=== PATIENT | male | born 1945 | race Caucasian/White ===

== ENCOUNTER 2019-08-01 10:19 | Observation (INO) | payer MEDICARE, OTHER ==
[2019-08-01] MEDS ORDERED: LEVETIRACETAM 500 MG/NACL-ISO 500 MG/100 ML RTUPB IV ONE (10:36)
[2019-08-01] MEDS ORDERED: LEVETIRACETAM 1000 MG/NACL-ISO 1,000 MG/100 ML RTUPB IV ONE (10:36)
[2019-08-01 10:57] LABS: ABSOLUTE BASOPHILS # (AUTO) 0.1 10^3/uL (0.0-0.2); ABSOLUTE EOSINOPHILS # (AUTO) 0.1 10^3/uL (0.0-0.6); ABSOLUTE LYMPHOCYTES (AUTO) 0.6 10^3/uL (0.5-4.7); ABSOLUTE MONOCYTES (AUTO) 0.3 10^3/uL (0.1-1.4); ABSOLUTE NEUT (AUTO) 4.8 10^3/uL (1.7-8.2); EOSINOPHILS % (AUTO) 1.2 % (0-6); HEMATOCRIT 43.9 % (37.9-51.0); HEMOGLOBIN 14.7 g/dL (13.5-17.0); LYMPHOCYTES % (AUTO) 9.8 % (13-45); MEAN CORPUSCULAR HEMOGLOBIN 31.7 pg (27.0-33.4); MEAN CORPUSCULAR HGB CONC 33.4 g/dL (32.0-36.0); MEAN CORPUSCULAR VOLUME 95 fl (80-97); MONOCYTES % (AUTO) 5.9 % (3-13); PLATELET COUNT 183 10^3/uL (150-450); RED BLOOD COUNT 4.63 10^6/uL (4.35-5.55); RED CELL DISTRIBUTION WIDTH 14.1 % (11.5-14.0); SEGMENTED NEUTROPHILS % (AUTO) 82.1 % (42-78); TOTAL CELLS COUNTED % (AUTO) 100 %; WHITE BLOOD COUNT 5.9 10^3/uL (4.0-10.5)
[2019-08-01 11:00] LABS: INTERNATIONAL RATION (INR) 0.98; VENOUS BLOOD BASE EXCESS -5.4 mmol/L; VENOUS BLOOD HCO3 21.4 mmol/L (20-32); VENOUS BLOOD PCO2 46.6 mmHg (35-63); VENOUS BLOOD PH 7.28 (7.30-7.42)
[2019-08-01] MEDS ORDERED: LEVETIRACETAM 1500 MG/NACL-ISO 1,500 MG/100 ML RTUPB IV SCH (11:00)
--- NOTE | 2019-08-01 11:12 | RADIOLOGY REPORT (SQ) ---
EXAM DESCRIPTION: CHEST SINGLE VIEW COMPLETED DATE/TIME: 08/01/2019 11:03 am REASON FOR STUDY: ams COMPARISON: 07/21/2010 EXAM PARAMETERS: NUMBER OF VIEWS: One view. TECHNIQUE: Single frontal radiographic view of the chest acquired. RADIATION DOSE: NA LIMITATIONS: None. FINDINGS: LUNGS AND PLEURA: No opacities, masses or pneumothorax. No pleural effusion. MEDIASTINUM AND HILAR STRUCTURES: There is concavity along the right hilum. Most likely secondary to tortuous thoracic aorta. HEART AND VASCULAR STRUCTURES: Heart normal in size. Normal vasculature. BONES: No acute findings. HARDWARE: None in the chest. OTHER: No other significant finding. IMPRESSION: Suspect tortuous ascending thoracic aorta. No other significant findings in the chest. TECHNICAL DOCUMENTATION: JOB ID: [id number] 2010 [employer]- All Rights Reserved Reading location - IP/workstation name: [email or web address]
--- NOTE | 2019-08-01 11:13 | RADIOLOGY REPORT (SQ) ---
EXAM DESCRIPTION: CT HEAD WITHOUT COMPLETED DATE/TIME: 08/01/2019 11:01 am REASON FOR STUDY: ams/sz COMPARISON: None. TECHNIQUE: Axial images acquired through the brain without intravenous contrast. Images reviewed wi th bone, brain and subdural windows. Additional sagittal and coronal reconstructions were generated. Images stored on PACS. All CT scanners at this facility use dose modulation, iterative reconstruction, and/or weight based d osing when appropriate to reduce radiation dose to as low as reasonably achievable (ALARA). [facility]: Dose Right [facility]: CareDose [facility]: Dose Right [facility]: Teradose 4D [facility]: Smart The Other [employer]ys RADIATION DOSE: CT Rad equipment meets quality standard of care and radiation dose reduction techniq ues were employed. CTDIvol: 53.2 mGy. DLP: 1070 mGy-cm. mGy. LIMITATIONS: None. FINDINGS: VENTRICLES: Prominent. CEREBRUM: No masses. No hemorrhage. No midline shift. Areas of low density in the white matter mos t likely due to chronic micro-vascular ischemic change. No evidence for acute infarction. CEREBELLUM: No masses. No hemorrhage. No alteration of density. No evidence for acute infarction. EXTRAAXIAL SPACES: Mild age-related involutional change. No fluid collections. No masses. ORBITS AND GLOBE: No intra- or extraconal masses. Normal contour of globe without masses. CALVARIUM: No fracture. PARANASAL SINUSES: Surgical changes in the right maxillary sinus. No fluid or mucosal thickening. SOFT TISSUES: No mass or hematoma. OTHER: No other significant finding. IMPRESSION: MILD CHRONIC CHANGES OF ATROPHY AND MICROVASCULAR ISCHEMIA. NO ACUTE PROCESS. EVIDENCE OF ACUTE STROKE: NO. TECHNICAL DOCUMENTATION: JOB ID: [id number] Quality ID # [id number]: Final reports with documentation of one or more dose reduction techniques (e.g., Au tomated exposure control, adjustment of the mA and/or kV according to patient size, use of iterative reconstruction technique) 2010 [employer]- All Rights Reserved Reading location - IP/workstation name: [email or web address]
[2019-08-01 11:21] LABS: ALBUMIN 3.7 g/dL (3.5-5.0); ALKALINE PHOSPHATASE 52 U/L (38-126); ANION GAP 13 (5-19); ASPARTATE AMINO TRANSFERASE 26 U/L (17-59); BILIRUBIN,TOTAL 0.4 mg/dL (0.2-1.3); BLOOD UREA NITROGEN 19 mg/dL (7-20); CALCIUM 8.5 mg/dL (8.4-10.2); CARBON DIOXIDE 20 mmol/L (22-30); CHLORIDE 107 mmol/L (98-107); GLUCOSE 146 mg/dL (75-110); POTASSIUM 4.1 mmol/L (3.6-5.0); TOTAL PROTEIN 6.4 g/dL (6.3-8.2)
--- NOTE | 2019-08-01 13:16 | ER Document Report ---
ED General - General Chief Complaint: Probable Seizure Stated Complaint: POSSIBLE SEIZURE Time Seen by Provider: 08/01/19 10:27 Primary Care Provider: DESTINI WINTER PA-C [Primary Care Provider] - Follow up as needed Mode of Arrival: Medic Information source: Patient, Emergency Med Personnel TRAVEL OUTSIDE OF THE [place] IN LAST 30 DAYS: No - HPI Notes: Patient is brought in by paramedics after a seizure. History was obtained from paramedics patient and from who is now arrived. states that several weeks ago patient had an episode where he was altered for most of the day. 2 days after this he went to see his primary care physician. She states multiple laboratories and an MRI were done and they were all normal. Today she states when the patient woke up he was once again confused. Patient then went to [facility]. Per bystanders at [facility] she had 2 grand mal seizures there. Paramedics states that they found him postictal. Patient states he has not recently had any chest pain or shortness of breath. No fevers. No rashes. No trauma. No problems with bowel movements or urination. No cough cold or congestion. Patient's confusion has apparently been intermittent. Nothing appears make it better or worse. There is obviously no radiation of the symptoms. They have been moderate in intensity. - Related Data Allergies/Adverse Reactions: No Known Allergies Allergy (Unverified 08/01/19 10:37) Past Medical History - General Information source: Patient - Social History Smoking Status: Never Smoker Frequency of alcohol use: None Drug Abuse: None Family History: Reviewed & Not Pertinent Patient has suicidal ideation: No Patient has homicidal ideation: No Review of Systems - Review of Systems Constitutional: denies: Chills, Fever Cardiovascular: denies: Chest pain, Palpitations Respiratory: denies: Cough, Short of breath -: Yes All other systems reviewed and negative Physical Exam - Vital signs Vitals: Resp Pulse Ox 13 98 08/01/19 10:28 08/01/19 10:28 Interpretation: Normal - General General appearance: Alert, Lethargic - Patient arrives lethargic but is currently at 1 PM alert and oriented x3. - HEENT Head: Normocephalic, Atraumatic Eyes: Normal Pupils: PERRL - Respiratory Respiratory status: No respiratory distress Chest status: Nontender Breath sounds: Normal Chest palpation: Normal - Cardiovascular Rhythm: Regular Heart sounds: Normal auscultation Murmur: No - Abdominal Inspection: Normal Distension: No distension Bowel sounds: Normal Tenderness: Nontender Organomegaly: No organomegaly - Back Back: Normal, Nontender - Extremities General upper extremity: Normal inspection, Nontender, Normal color, Normal ROM, Normal temperature General lower extremity: Normal inspection, Nontender, Normal color, Normal ROM, Normal temperature, Normal weight bearing. No: Brooke's sign - Neurological Neuro grossly intact: Yes Cognition: Normal Orientation: AAOx4 [place] Coma Scale Eye Opening: Spontaneous David Coma Scale Verbal: Oriented David Coma Scale Motor: Obeys Commands [place] Coma Scale Total: 15 Speech: Normal Motor strength normal: LUE, RUE, LLE, RLE Sensory: Normal Notes: The above neuro exam is the neuro exam done at 1 PM. On arrival patient was lethargic and would not cooperate with neurological exam since he was postictal. - Psychological Associated symptoms: Normal affect, Normal mood - Skin Skin Temperature: Warm Skin Moisture: Dry Skin Color: Normal Course - Re-evaluation Re-evalutation: 08/01/19 13:16 Patient presents after 2 apparent grand mal seizures at [facility]. He has had some recent intermittent confusion as well. A recent MRI per family was negative. H ead CT here is negative. Exam and work-up so far here is also unremarkable. Patient will require further inpatient work-up and evaluation. Patient has been accepted by the hospitalist for admission. - Vital Signs Vital signs: Temp Pulse Resp BP Pulse Ox 97.4 F 16 152/85 H 98 08/01/19 11:04 08/01/19 12:01 08/01/19 12:01 08/01/19 12:01 - Laboratory Result Diagrams: 08/01/19 10:30 08/01/19 10:30 Laboratory results interpreted by me: 08/01/19 08/01/19 08/01/19 10:30 10:30 10:30 RDW 14.1 H Lymph % (Auto) 9.8 L Seg Neutrophils % 82.1 H VBG pH 7.28 L Carbon Dioxide 20 L Glucose 146 H POC Glucose 08/01/19 10:43 RDW Lymph % (Auto) Seg Neutrophils % VBG pH Carbon Dioxide Glucose POC Glucose 130 H - Diagnostic Test Radiology reviewed: Image reviewed, Reports reviewed - EKG Interpretation by Me EKG shows normal: Sinus rhythm Rate: Tachycardia - 102 Rhythm: NSR [place]/QRS: LAHB/LAFB Discharge - Discharge Clinical Impression: Seizure Condition: Stable Disposition: ADMITTED INPATIENT Admitting Provider: Brooklynn (Hospitalist) Unit Admitted: Medical Floor Referrals: DESTINI WINTER PA-C [Primary Care Provider] - Follow up as needed
[2019-08-01] MEDS ORDERED: NORMAL SALINE 1000 ML 1,000 ML IV ONE (13:22)
[2019-08-01 13:32] LABS: APPEARANCE,URINE CLEAR; BILIRUBIN,URINE NEGATIVE (NEGATIVE); COLOR,URINE YELLOW; GLUCOSE, URINE NEGATIVE (NEGATIVE); KETONES,URINE TRACE mg/dL (NEGATIVE); PROTEIN,URINE 100 mg/dL (NEGATIVE); URINE SPECIFIC GRAVITY 1.018; UROBILINOGEN,URINE NEGATIVE mg/dL (<2.0)
--- NOTE | 2019-08-01 14:20 | PDOC H&P ---
History of Present Illness Admission Date/PCP: 08/01/19 13:37 DESTINI WINTER PA-C Patient complains of: seizure History of Present Illness: ZARINA ESPINOZA is a 74 year old male with no significant past medical history aside from hyperlipidemia and hypertension who was brought in due to seizures. Patient reportedly was attending [employer] this morning when he had 2 tonic-clonic seizures. Patient is now awake but could not describe the seizure to me. Friend at bedside unfortunately also did not witness the seizure this morning. Patient reportedly had a postictal state and was noted to be confused after the episode. He also reportedly had a fecal incontinence. No urinary incontinence. Patient says that he had his first episode last month and that his PCP had done a few work-up including a CT of the head which was unremarkable. He says he was not started on any seizure medication. Denies prior history of seizures. On encounter, he is AAO x3 and saturating well on room air. Social History Smoking Status: Never Smoker Family History Family History: Reviewed & Not Pertinent Parental Family History Reviewed: Yes - no premature CAD Children Family History Reviewed: No Sibling(s) Family History Reviewed.: No Medication/Allergy Allergies/Adverse Reactions: No Known Allergies Allergy (Unverified 08/01/19 10:37) Review of Systems All systems: reviewed and no additional remarkable complaints except as stated - As mentioned in HPI Physical Exam Vital Signs: Temp Pulse Resp BP Pulse Ox 97.4 F 19 152/85 H 99 08/01/19 11:04 08/01/19 13:00 08/01/19 12:01 08/01/19 13:00 Intake & Output 07/31/19 08/01/19 08/02/19 06:59 06:59 06:59 Intake Total 100 Balance 100 Weight 197 lb 5.019 oz General appearance: PRESENT: no acute distress, well-developed, well-nourished Head exam: PRESENT: atraumatic, normocephalic Eye exam: PRESENT: conjunctiva pink, EOMI, PERRLA. ABSENT: scleral icterus Ear exam: PRESENT: normal external ear exam Mouth exam: PRESENT: moist, tongue midline Neck exam: ABSENT: carotid bruit, JVD, lymphadenopathy, thyromegaly Respiratory exam: PRESENT: clear to auscultation mya. ABSENT: rales, rhonchi, wheezes Cardiovascular exam: PRESENT: RRR. ABSENT: diastolic murmur, rubs, systolic murmur Pulses: PRESENT: normal dorsalis pedis pul GI/Abdominal exam: PRESENT: normal bowel sounds, soft. ABSENT: distended, guarding, mass, organolmegaly, rebound, tenderness Rectal exam: PRESENT: deferred Extremities exam: PRESENT: full ROM. ABSENT: calf tenderness, clubbing, pedal edema Neurological exam: PRESENT: alert, awake, oriented to person, oriented to place, oriented to time, oriented to situation, CN II-XII grossly intact. ABSENT: motor sensory deficit Results Laboratory Results: 08/01/19 10:30 08/01/19 10:30 08/01/19 08/01/19 08/01/19 10:30 10:30 10:30 WBC 5.9 RBC 4.63 Hgb 14.7 Hct 43.9 MCV 95 MCH 31.7 MCHC 33.4 RDW 14.1 H Plt Count 183 Seg Neutrophils % 82.1 H VBG pH 7.28 L VBG pCO2 46.6 VBG HCO3 21.4 VBG Base Excess -5.4 Sodium 139.6 Potassium 4.1 Chloride 107 Carbon Dioxide 20 L Anion Gap 13 BUN 19 Creatinine 0.87 Est GFR ( Amer) > 60 Glucose 146 H Lactic Acid Calcium 8.5 Total Bilirubin 0.4 AST 26 Alkaline Phosphatase 52 Total Protein 6.4 Albumin 3.7 Urine Color Urine Appearance Urine pH Ur Specific [place] Urine Protein Urine Glucose (UA) Urine Ketones Urine Blood Urine RBC (Auto) 08/01/19 08/01/19 08/01/19 10:30 12:00 12:40 WBC RBC Hgb Hct MCV MCH MCHC RDW Plt Count Seg Neutrophils % VBG pH VBG pCO2 VBG HCO3 VBG Base Excess Sodium Potassium Chloride Carbon Dioxide Anion Gap BUN Creatinine Est GFR ( Amer) Glucose Lactic Acid Cancelled 1.0 3.4 H Calcium Total Bilirubin AST Alkaline Phosphatase Total Protein Albumin Urine Color Urine Appearance Urine pH Ur Specific [place] Urine Protein Urine Glucose (UA) Urine Ketones Urine Blood Urine RBC (Auto) 08/01/19 13:10 WBC RBC Hgb Hct MCV MCH MCHC RDW Plt Count Seg Neutrophils % VBG pH VBG pCO2 VBG HCO3 VBG Base Excess Sodium Potassium Chloride Carbon Dioxide Anion Gap BUN Creatinine Est GFR ( Amer) Glucose Lactic Acid Calcium Total Bilirubin AST Alkaline Phosphatase Total Protein Albumin Urine Color YELLOW Urine Appearance CLEAR Urine pH 5.0 Ur Specific [place] 1.018 Urine Protein 100 H Urine Glucose (UA) NEGATIVE Urine Ketones TRACE H Urine Blood SMALL H Urine RBC (Auto) 2 08/01/19 10:30 Troponin I < 0.012 Impressions: Chest X-Ray 08/01/19 10:29 IMPRESSION: Suspect tortuous ascending thoracic aorta. No other significant findings in the chest. Head CT 08/01/19 10:30 IMPRESSION: MILD CHRONIC CHANGES OF ATROPHY AND MICROVASCULAR ISCHEMIA. NO ACUTE PROCESS. EVIDENCE OF ACUTE STROKE: NO. Assessment and Plan - Diagnosis (1) Seizure Is this a current diagnosis for this admission?: Yes Plan: Started on IV Keppra. CT of the head is unremarkable. Will pursue an MRI. Also order for an EEG. (2) Hypertension Is this a current diagnosis for this admission?: Yes (3) Hyperlipidemia Is this a current diagnosis for this admission?: Yes - Time Time Spent with patient: 25-34 minutes
[2019-08-01] MEDS ORDERED: LORAZEPAM INJ 2 MG/1 ML VIAL IV PRN (15:25)
--- NOTE | 2019-08-01 17:26 | EKG REPORT ---
SEVERITY:- ABNORMAL ECG - SINUS TACHYCARDIA FIRST DEGREE AV BLOCK PROBABLE LEFT ATRIAL ABNORMALITY LEFT ANTERIOR FASCICULAR BLOCK : Confirmed by: Whitney Decker MD 01-Aug-2019 17:25:23
--- NOTE | 2019-08-01 20:19 | RADIOLOGY REPORT (SQ) ---
MR BRAIN WITHOUT CONTRAST EXAM DATE: 08/01/2019 12:00 AM [employer] HISTORY: Recurring seizures. COMPARISON: None. TECHNIQUE: Multisequence, multiplanar MR imaging of the brain was performed without the administration of intravenous gadolinium. FINDINGS: Scattered areas of T2/FLAIR hyperintense foci are seen in the supratentorial white matter, likely representing chronic microvascular ischemia. There is no acute infarction, intracranial hemorrhage, extra-axial fluid collection, or mass. The orbits are unremarkable. The calvarium and skull base appear unremarkable. The paranasal sinuses are clear. IMPRESSION: 1. No acute intracranial findings. 2. Senescent changes with chronic microvascular ischemia.
--- NOTE | 2019-08-01 20:29 | NEURO WORKBENCH EEG REPORT ---
EEG Report Patient: Christiano Rangel ID: [id number] Referring Doctor: Ever Overton Date: 08/01/2019 Reason for study: Evaluate Epileptiform activity Medications: Keppra, Porcine History: This is a 74year old male with a history of HTN and hypercholesterolemia who had a first seizure two months ago. The patient felt disoriented this morning, reports having a seizure and awakening in the hospital. This EEG was requested for evaluation of epileptiform activity. EEG Interpretation: This EEG was recorded during wakefulness, stage I, and stage II sleep. The awake EEG is characterized by a well organized background with a well developed and reactive posterior dominant rhythm (PDR) of approximately 8-9 Hz. The remainder of the background consisted of low amplitude diffuse beta activity. The EEG is symmetric in amplitudes and frequencies. Photic stimulation resulted in minimal photic driving, and there was no epileptiform activity elicited with photic stimulation. Stage I sleep was achieved and characterized by slow rolling eye movements and slowing of the background rhythm. There were periods of hypnogogic hypersynchrony. Stage II sleep was achieved with more diffuse background slowing and theta activity, symmetric sleep spindles, and K-Complexes. There were several sharply contoured waveforms in the left central region which were not definitively (but potentially) epileptiform in etiology; there were not slow waves after these sharply contoured waveforms. There were no seizures. The EKG showed a regular rhythm with typically 75-85 beats per minute. EEG Impression: This EEG is abnormal due to several left central potentially epileptiform sharply contoured waveforms. Further evaluation with MRI of the Brain should be considered to evaluate for any potential structural abnormality in this region. It should also be noted that the patient is on Keppra which could potentially suppress interictal epileptiform activity. If there is high clinical suspicion for epilepsy, then additional EEG evaluation should be considered with a sleep- deprived EEG or more prolonged EEG monitoring. INTERPRETING NEUROLOGIST: Giovanny Messina MD Board certified by the [place] [employer] in Neurology, Clinical Neurophysiology, and Sleep Medicine [facility]
[2019-08-01] MEDS ORDERED: LEVETIRACETAM 500 MG/NACL-ISO 500 MG/100 ML RTUPB IV SCH (22:00)
[2019-08-01] MEDS: HEPARIN SOD (PORCINE) 5,000 UNIT/ML 1 ML VIAL SUBCUT SCH (22:04)
[2019-08-02] MEDS: HEPARIN SOD (PORCINE) 5,000 UNIT/ML 1 ML VIAL SUBCUT SCH (05:46)
[2019-08-02] MEDS ORDERED: LEVETIRACETAM 500 MG TABLET PO SCH (10:00)
[2019-08-02 13:24] VITALS: BP 144/75
--- NOTE | 2019-08-02 14:09 | PDOC DISCHARGE SUMMARY ---
Impression - Admit/DC Date/PCP Admission Date/Primary Care Provider: 08/01/19 13:37 DESTINI WINTER PA-C Discharge Date: 08/02/19 - Discharge Diagnosis (1) Seizure Is this a current diagnosis for this admission?: Yes (2) Hypertension Is this a current diagnosis for this admission?: Yes (3) Hyperlipidemia Is this a current diagnosis for this admission?: Yes - Additional Information Resuscitation Status: Full Code Discharge Diet: As Tolerated Discharge Activity: Activity As Tolerated, Balance Activity w/Rest Referrals: [facility] [Other] (PRIMARY CARE PROVIDER WILL SEND A REFERRAL) DESTINI WINTER PA-C [Primary Care Provider] - 08/07/19 1:00 pm (NEEDS A NEUROLOGY REFERRAL SENT TO [facility]) Prescriptions: Levetiracetam [Keppra 500 mg Tablet] 500 mg PO Q12 #60 tablet Home Medications: Levothyroxine Sodium [Synthroid 0.025 mg Tablet] 25 mcg PO DAILY 08/01/19 Losartan Potassium [Cozaar 50 mg Tablet] 50 mg PO DAILY 08/01/19 Lovastatin 20 mg PO DAILY 08/01/19 Levetiracetam [Keppra 500 mg Tablet] 500 mg PO Q12 #60 tablet 08/02/19 History of Present Illiness History of Present Illness: ZARINA ESPINOZA is a 74 year old male with no significant past medical history aside from hyperlipidemia and hypertension who was brought in due to seizures. Patient reportedly was attending [employer] this morning when he had 2 tonic-clonic seizures. Patient is now awake but could not describe the seizure to me. Friend at bedside unfortunately also did not witness the seizure this morning. Patient reportedly had a postictal state and was noted to be confused after the episode. He also reportedly had a fecal incontinence. No urinary incontinence. Patient says that he had his first episode last month and that his PCP had done a few work-up including a CT of the head which was unremarkable. He says he was not started on any seizure medication. Denies prior history of seizures. On encounter, he is AAO x3 and saturating well on room air. Hospital Course Hospital Course: This is a 74-year-old male who was admitted because of a seizure episode. This is patient's second episode of seizures since June. MRI was pursued and brain MRI was unremarkable. EEG was also done which did show some epileptiform activity. Patient was started on IV Keppra in the ER. He did not have any recurrence of seizures since admission. He is back to his baseline is fully awake and coherent. He is able to ambulate the hallways on room air without any acute issues. He will be discharged on PO Keppra. He will be made an appoint with outpatient neurology. Physical Exam Vital Signs: Temp Pulse Resp BP Pulse Ox 98.3 F 71 16 144/75 H 99 08/02/19 13:22 08/02/19 13:22 08/02/19 13:22 08/02/19 13:22 08/02/19 13:22 Intake & Output 08/01/19 08/02/19 08/03/19 06:59 06:59 06:59 Intake Total 1320 Balance 1320 Weight 195 lb 15.855 oz General appearance: PRESENT: no acute distress, well-developed, well-nourished Head exam: PRESENT: atraumatic, normocephalic Eye exam: PRESENT: conjunctiva pink, EOMI, PERRLA. ABSENT: scleral icterus Ear exam: PRESENT: normal external ear exam Mouth exam: PRESENT: moist, tongue midline Neck exam: ABSENT: carotid bruit, JVD, lymphadenopathy, thyromegaly Respiratory exam: PRESENT: clear to auscultation mya. ABSENT: rales, rhonchi, wheezes Cardiovascular exam: PRESENT: RRR. ABSENT: diastolic murmur, rubs, systolic murmur Pulses: PRESENT: normal dorsalis pedis pul GI/Abdominal exam: PRESENT: normal bowel sounds, soft. ABSENT: distended, guarding, mass, organolmegaly, rebound, tenderness Rectal exam: PRESENT: deferred Extremities exam: PRESENT: full ROM. ABSENT: calf tenderness, clubbing, pedal edema Neurological exam: PRESENT: alert, awake, oriented to person, oriented to place, oriented to time, oriented to situation, CN II-XII grossly intact. ABSENT: motor sensory deficit Results Laboratory Results: WBC 5.9 10^3/uL (4.0-10.5) 08/01/19 10:30 RBC 4.63 10^6/uL (4.35-5.55) 08/01/19 10:30 Hgb 14.7 g/dL (13.5-17.0) 08/01/19 10:30 Hct 43.9 % (37.9-51.0) 08/01/19 10:30 MCV 95 fl (80-97) 08/01/19 10:30 MCH 31.7 pg (27.0-33.4) 08/01/19 10:30 MCHC 33.4 g/dL (32.0-36.0) 08/01/19 10:30 RDW 14.1 % (11.5-14.0) H 08/01/19 10:30 Plt Count 183 10^3/uL (150-450) 08/01/19 10:30 Lymph % (Auto) 9.8 % (13-45) L 08/01/19 10:30 [place] % (Auto) 5.9 % (3-13) 08/01/19 10:30 Eos % (Auto) 1.2 % (0-6) 08/01/19 10:30 Baso % (Auto) 1.0 % (0-2) 08/01/19 10:30 Absolute Neuts (auto) 4.8 10^3/uL (1.7-8.2) 08/01/19 10:30 Absolute Lymphs (auto) 0.6 10^3/uL (0.5-4.7) 08/01/19 10:30 Absolute Monos (auto) 0.3 10^3/uL (0.1-1.4) 08/01/19 10:30 Absolute Eos (auto) 0.1 10^3/uL (0.0-0.6) 08/01/19 10:30 Absolute Basos (auto) 0.1 10^3/uL (0.0-0.2) 08/01/19 10:30 Seg Neutrophils % 82.1 % (42-78) H 08/01/19 10:30 PT 13.0 SEC (11.4-15.4) 08/01/19 10:30 INR 0.98 08/01/19 10:30 VBG pH 7.28 (7.30-7.42) L 08/01/19 10:30 VBG pCO2 46.6 mmHg (35-63) 08/01/19 10:30 VBG HCO3 21.4 mmol/L (20-32) 08/01/19 10:30 VBG Base Excess -5.4 mmol/L 08/01/19 10:30 Sodium 139.6 mmol/L (137-145) 08/01/19 10:30 Potassium 4.1 mmol/L (3.6-5.0) 08/01/19 10:30 Chloride 107 mmol/L (98-107) 08/01/19 10:30 Carbon Dioxide 20 mmol/L (22-30) L 08/01/19 10:30 Anion Gap 13 (5-19) 08/01/19 10:30 BUN 19 mg/dL (7-20) 08/01/19 10:30 Creatinine 0.87 mg/dL (0.52-1.25) 08/01/19 10:30 Est GFR ( Amer) > 60 (>60) 08/01/19 10:30 Est GFR (MDRD) Non-Af > 60 (>60) 08/01/19 10:30 Glucose 146 mg/dL (75-110) H 08/01/19 10:30 POC Glucose 130 mg/dL (70-110) H 08/01/19 10:43 Lactic Acid 1.5 mmol/L (0.7-2.1) 08/01/19 18:30 Calcium 8.5 mg/dL (8.4-10.2) 08/01/19 10:30 Total Bilirubin 0.4 mg/dL (0.2-1.3) 08/01/19 10:30 Direct Bilirubin 0.0 mg/dL (0.0-0.4) 08/01/19 10:30 Neonat Total Bilirubin Not Reportable 08/01/19 10:30 Neonat Direct Bilirubin Not Reportable 08/01/19 10:30 Neonat Indirect Bili Not Reportable 08/01/19 10:30 AST 26 U/L (17-59) 08/01/19 10:30 ALT 15 U/L (<50) 08/01/19 10:30 Alkaline Phosphatase 52 U/L (38-126) 08/01/19 10:30 Troponin I < 0.012 ng/mL 08/01/19 10:30 Total Protein 6.4 g/dL (6.3-8.2) 08/01/19 10:30 Albumin 3.7 g/dL (3.5-5.0) 08/01/19 10:30 TSH 4.46 uIU/mL (0.47-4.68) 08/01/19 10:30 Urine Color YELLOW 08/01/19 13:10 Urine Appearance CLEAR 08/01/19 13:10 Urine pH 5.0 (5.0-9.0) 08/01/19 13:10 Ur Specific [place] 1.018 08/01/19 13:10 Urine Protein 100 mg/dL (NEGATIVE) H 08/01/19 13:10 Urine Glucose (UA) NEGATIVE mg/dL (NEGATIVE) 08/01/19 13:10 Urine Ketones TRACE mg/dL (NEGATIVE) H 08/01/19 13:10 Urine Blood SMALL (NEGATIVE) H 08/01/19 13:10 Urine Nitrite (Reflex) NEGATIVE (NEGATIVE) 08/01/19 13:10 Urine Bilirubin NEGATIVE (NEGATIVE) 08/01/19 13:10 Urine Urobilinogen NEGATIVE mg/dL (<2.0) 08/01/19 13:10 Leukocyte Esterase Rfl NEGATIVE (NEGATIVE) 08/01/19 13:10 Urine RBC (Auto) 2 /HPF 08/01/19 13:10 Urine WBC (Reflex) 1 /HPF 08/01/19 13:10 Urine Mucus (Auto) RARE /LPF 08/01/19 13:10 Urine Ascorbic Acid NEGATIVE (NEGATIVE) 08/01/19 13:10 08/01/19 10:30 Troponin I < 0.012 Impressions: Head MRI 08/01/19 00:00 IMPRESSION: 1. No acute intracranial findings. 2. Senescent changes with chronic microvascular ischemia. Chest X-Ray 08/01/19 10:29 IMPRESSION: Suspect tortuous ascending thoracic aorta. No other significant findings in the chest. Head CT 08/01/19 10:30 IMPRESSION: MILD CHRONIC CHANGES OF ATROPHY AND MICROVASCULAR ISCHEMIA. NO ACUTE PROCESS. EVIDENCE OF ACUTE STROKE: NO. Stroke Is this a Stroke Patient?: No Acute Heart Failure - Is this a Heart Failure Patient?: No
== END 2019-08-02 15:10 | disposition home or self-care (01) ==
LOC: ER 10:19 → INTOOBSV 13:37 → EH 13:37 → 4S 17:13
PROVIDERS: ADMIT Internal Medicine; ATTEND Internal Medicine
DX: G40.89 Other seizures (principal); I10 Essential (primary) hypertension; E78.5 Hyperlipidemia, unspecified; R53.83 Other fatigue; R00.0 Tachycardia, unspecified; R15.9 Full incontinence of feces; Z79.899 Other long term (current) drug therapy
CPT/HCPCS: 95819 ×2; 93005; 99285; 96374; 36415; 87040; 82962; 83605; 84443; 85025; 85610; 80053; 81001; 84484; 82803; 70553; 71045; 70450; 93010; G0378 ×3; J1644 ×2; A9270; J3490 ×2; J7030; J1953 ×2